=== PATIENT | male | born 1955 | race Caucasian/White ===

== ENCOUNTER 2016-09-22 06:39 | Emergency (ER) | payer OTHER ==
[~2016-09-22] VITALS: Ht 177.8 cm; Wt 88.5 kg
[2016-09-22 07:00] VITALS: BP 146/82; PULSE 97; RESP 16; TEMP 98.2; O2SAT 98
[2016-09-22 07:40] VITALS: BP 140/86; PULSE 88; RESP 18; TEMP 98; O2SAT 99
== END 2016-09-22 07:40 | disposition home or self-care (01) ==
LOC: SED 06:39
DX: J40 Bronchitis, not specified as acute or chronic (principal)
CPT/HCPCS: 99283